=== PATIENT | female | born 1980 | race Caucasian/White ===

== ENCOUNTER 2017-04-18 15:02 | Emergency (ER) | payer OTHER ==
[2017-04-18 15:10] VITALS: TEMP 98.7; BMI 26.6
--- NOTE | 2017-04-18 15:14 | PDOC ---
Rapid Medical Evaluation Time Seen by Provider: 04/18/17 15:06 Medical Evaluation: 04/18/17 15:06 Pt c/o: swelling ankles, chest tightness radiating to back. left calf worsening over the 3 days. No cough, no fever, + sob w/ rest Pt on brief exam: tacjy 109-115. sat 99%. PERC -. Pt went to urgent care today and after going home, received phone call with + d dimer. Pt ordered for: iv, cbc, comp, ua, hcg, chest cta Pt to proceed to the ED Discharge Disposition - Diagnosis Chest pain - Referrals - Patient Instructions - Post Discharge Activity
[2017-04-18 15:41] LABS: URINE APPEARANCE CLEAR; URINE BILIRUBIN NEGATIVE (NEGATIVE); URINE BLOOD 1+ (NEGATIVE); URINE COLOR LTYELLOW; URINE GLUCOSE (UA) NEGATIVE (NEGATIVE); URINE KETONE NEGATIVE (NEGATIVE); URINE LEUK ESTERASE TRACE (NEGATIVE); URINE NITRITE NEGATIVE (NEGATIVE); URINE PROTEIN NEGATIVE (NEGATIVE); URINE UROBILINOGEN NEGATIVE mg/dL (0.2-1.0)
[2017-04-18 15:42] LABS: BASO % 0.7 % (0-2.0); EOS % 2.9 % (0-4.5); HEMATOCRIT 43.1 % (32.4-45.2); HEMOGLOBIN 14.4 GM/dL (10.7-15.3); LYMPH % 33.4 % (8-40); MCH 29.7 pg (25.7-33.7); MCHC 33.3 g/dl (32.0-36.0); MEAN CELL VOLUME 89.2 fl (80-96); MEAN PLT VOLUME 8.7 fl (7.5-11.1); MONO % 5.4 % (3.8-10.2); NEUT % 57.6 % (42.8-82.8); PLATELET COUNT 200 K/MM3 (134-434); RBC 4.83 M/mm3 (3.60-5.2); RDW 12.8 % (11.6-15.6); WHITE BLOOD COUNT 7.9 K/mm3 (4.0-10.0)
[2017-04-18 15:46] LABS: HCG,QUALITATIVE URINE NEGATIVE
[2017-04-18 16:04] LABS: ALBUMIN 4.3 g/dl (3.4-5.0); ANION GAP 10 (8-16); BILIRUBIN,TOTAL 0.4 mg/dL (0.2-1.0); BLOOD UREA NITROGEN 5 mg/dL (7-18); CALCIUM 8.7 mg/dL (8.5-10.1); CHLORIDE 103 mmol/L (98-107); CO2 26 mmol/L (21-32); CREATININE 0.8 mg/dL (0.55-1.02); GLUCOSE,RANDOM 118 mg/dL (74-106); POTASSIUM 3.3 mmol/L (3.5-5.1); SGOT/AST 23 U/L (15-37); SGPT/ALT 37 U/L (12-78); SODIUM 139 mmol/L (136-145); TOT PROT 7.8 g/dl (6.4-8.2)
[2017-04-18 16:05] LABS: ALK PHOS 78 U/L (45-117)
[2017-04-18 17:00] LABS: EPI CELLS RARE /HPF (FEW); URINE BACTERIA MANY /hpf (NONE SEEN); URINE MUCUS RARE
[2017-04-18 18:44] VITALS: BP 112/87; PULSE 91
--- NOTE | 2017-04-18 18:45 | PDOC ---
History of Present Illness - General Chief Complaint: Chest Pain Stated Complaint: LAB VARIANCE, CHEST PAIN Time Seen by Provider: 04/18/17 15:06 - History of Present Illness Initial Comments: 04/18/17 18:40 "The patient is a 36-year-old female, with a significant past medical history of childhood asthma, who presents to the ED with six days of intermittent SOB. Pt states that she will suddenly feel short of breath at random times of the day , often at rest. This lasts a few minutes and resolves spontaneously. She also reports intermittent pain radiating from her chest to her upper back. Denies any injury recently. Denies cough. Denies fever. Pt denies any leg swelling but states that she has had a "tingling' sensation in her L ankle for some time. She currently denies any complaints. Denies CP/SOB. Denies recent travel/ immobilization. Denies OCP use. Denies h/o DVT/PE. The patient visited an urgent care today and blood work was performed. The patient was noted to have an elevated D-dimer. She was sent to the ED for further evaluation. The patient denies any fever, chills, nausea, vomiting, diarrhea, or abdominal pain. Allergies: NKDA Social History: No reported tobacco, alcohol, or drug use. PCP: N/A " Past History - Past Medical History Allergies/Adverse Reactions: Allergies Allergy/AdvReac Type Severity Reaction Status Date / Time No Known Allergies Allergy Verified 04/18/17 15:07 Asthma: Yes (CHILDHOOD) COPD: No - Immunization History Immunization Up to Date: No - Suicide/Smoking/Psychosocial Hx Smoking History: Never smoked Have you smoked in the past 12 months: No Information on smoking cessation initiated: No Review of Systems - Review of Systems Comments:: 04/18/17 18:42 "GENERAL/CONSTITUTIONAL: No fever or chills. No weakness. HEAD, EYES, EARS, NOSE AND THROAT: No change in vision. No ear pain or discharge. No sore throat. CARDIOVASCULAR: (+)chest pain and shortness of breath. RESPIRATORY: No cough, wheezing, or hemoptysis. GASTROINTESTINAL: No nausea, vomiting, diarrhea or constipation. GENITOURINARY: No dysuria, frequency, or change in urination. MUSCULOSKELETAL: No joint or muscle swelling or pain. No neck or back pain. SKIN: No rash NEUROLOGIC: No headache, vertigo, loss of consciousness. ENDOCRINE: No increased thirst. No abnormal weight change. HEMATOLOGIC/LYMPHATIC: No anemia, easy bleeding, or history of blood clots. ALLERGIC/IMMUNOLOGIC: No hives or skin allergy. " *Physical Exam - Vital Signs Last Vital Signs Temp Pulse Resp BP Pulse Ox 98.7 F 91 H 15 112/87 100 04/18/17 15:07 04/18/17 18:18 04/18/17 18:18 04/18/17 18:18 04/18/17 18:18 - Physical Exam Comments: 04/18/17 18:44 "GENERAL: Awake, alert, and fully oriented, in no acute distress HEAD: No signs of trauma EYES: PERRLA, EOMI, sclera anicteric, conjunctiva clear ENT: Auricles normal inspection, hearing grossly normal, nares patent, oropharynx clear without exudates. Moist mucosa NECK: Nontender, no stepoffs, Normal ROM, supple, no lymphadenopathy, JVD, or masses LUNGS: Breath sounds equal, clear to auscultation bilaterally. No wheezes, and no crackles HEART: Regular rate and rhythm, normal S1 and S2, no murmurs, rubs or gallops ABDOMEN: Soft, nontender, normoactive bowel sounds. No guarding, no rebound. No masses EXTREMITIES: Normal range of motion, no edema. No clubbing or cyanosis. No cords, erythema, or tenderness NEUROLOGICAL: Cranial nerves II through XII intact. 5/5 strength and sensation in all extremities, Normal speech, normal gait SKIN: Warm, Dry, normal turgor, no rashes or lesions noted. " Heart Score/ECG Review - History History: Slightly suspicious - Electrocardiogram EKG: Normal - Age Age: </= 45 - Risk Factors Based on the list above the patient has:: No risk factors known - Troponin Troponin: </= normal limit - Score Heart Score - Total: 0 - ECG Impressions Comment:: 04/18/17 18:48 NSR, no ANNIA/STDs, no TWIs, axis wnl, intervals wnl, rate 75 ED Treatment Course - LABORATORY CBC & Chemistry Diagram: 04/18/17 15:25 04/18/17 15:25 - ADDITIONAL ORDERS Additional order review: Laboratory Results 02/08/18 02/08/18 15:25 15:25 Sodium 139 Potassium 3.3 L Chloride 103 Carbon Dioxide 26 Anion Gap 10 BUN 5 L Creatinine 0.8 Creat Clearance w eGFR > 60 Random Glucose 118 H Calcium 8.7 Total Bilirubin 0.4 AST 23 ALT 37 Alkaline Phosphatase 78 Total Protein 7.8 Albumin 4.3 Urine Color Ltyellow Urine Appearance Clear Urine pH 8.0 Ur Specific [place] 1.006 Urine Protein Negative Urine Glucose (UA) Negative Urine Ketones Negative Urine Blood 1+ H Urine Nitrite Negative Urine Bilirubin Negative Urine Urobilinogen Negative Ur Leukocyte Esterase Trace Urine WBC (Auto) 2 Urine RBC (Auto) 4 Ur Epithelial Cells Rare Urine Bacteria Many Urine Mucus Rare Urine HCG, Qual Negative 04/18/17 15:25 RBC 4.83 MCV 89.2 MCHC 33.3 RDW 12.8 MPV 8.7 Neutrophils % 57.6 Lymphocytes % 33.4 Monocytes % 5.4 Eosinophils % 2.9 Basophils % 0.7 Medical Decision Making - Medical Decision Making 04/18/17 18:44 36 F with intermittent SOB, found to have + ddimer at urgent care. Pt with NO clinical signs of DVT on exam. Lung exam clear. EKG nonischemic. - CTA chest negative for PE Vital signs reassessed - now wnl Pt re-evaluated - continues to feel well without SOB or CP. Pt clinically stable for DC. *DC/Admit/Observation/Transfer Diagnosis at time of Disposition: Chest pain - Referrals - Patient Instructions Printed Discharge Instructions: DI for Atypical Chest Pain Additional Instructions: Please follow up with your primary doctor within 1 week for a re-evaluation. Even though your CT scan and labs were normal in the ER today, we cannot rule out all heart or lung conditions. You need consistent follow up with your primary doctor. If you experience worsening shortness of breath, chest pain, or any other concerning symptoms, return to the ER immediately. - Post Discharge Activity - Attestations Physician Attestion: 04/18/17 18:47 I, Dr. Truong Mcmahan MD, attest that this document has been prepared under my direction and personally reviewed by me in its entirety. I further attest, that it accurately reflects all work, treatment, procedures and medical decision -making performed by me.
--- NOTE | 2017-04-19 14:15 | EKG ---
Test Reason : Blood Pressure : / mmHG Vent. Rate : 075 BPM Atrial Rate : 075 BPM P-R Int : 148 ms QRS Dur : 090 ms QT Int : 368 ms P-R-T Axes : 066 031 049 degrees QTc Int : 410 ms NORMAL SINUS RHYTHM INCOMPLETE RBBB NO PREVIOUS ECGS AVAILABLE Confirmed by BALDO YI MD ([id number]) on 04/19/2017 2:15:24 PM Referred By: Confirmed By:BALDO YI MD
--- NOTE | 2017-04-21 10:49 | PDOC ---
Patient Follow-up (Call Back) - Post ED Follow - Up Condition at time of discharge: Stable Disposition at time of original discharge: HOME - Disposition Additional Instructions/Notes: returned pt's call left on the voice mail system. no answer left message to call back.
== END 2017-04-18 18:52 | disposition home or self-care (01) ==
LOC: JER 15:02
DX: R07.89 Other chest pain (principal)
CPT/HCPCS: 36415; 71275-TC; 80053; 81003; 81015; 84703; 85025; 93005; 93010; 99284-25

== ENCOUNTER 2021-11-18 15:49 | Emergency (ER) | payer OTHER ==
[2021-11-18 16:10] VITALS: BP 111/65; PULSE 90; RESP 17; TEMP 98.9; BMI 25.0
[2021-11-18] MEDS ORDERED: LIDOCAINE HCL 2% (20ML MULTI-DOSE VIAL) ONE (16:56)
== END 2021-11-18 18:47 | disposition home or self-care (01) ==
LOC: JERFT 15:49
DX: L03.011 Cellulitis of right finger (principal)
CPT/HCPCS: 87070; 87076; 87186; 87205; 99283-25

== ENCOUNTER 2021-11-21 16:45 | Emergency (ER) | payer OTHER ==
[2021-11-21 17:08] VITALS: BP 117/69; PULSE 66; RESP 17; TEMP 98.8; BMI 25.8
== END 2021-11-21 18:19 | disposition home or self-care (01) ==
LOC: JERFT 16:45
DX: Z48.00 Encounter for change or removal of nonsurgical wound dressing (principal)
CPT/HCPCS: 99281-25